=== PATIENT | female | born 1955 | race Caucasian/White ===

== ENCOUNTER 2023-05-05 07:21 | Day surgery (SDC) | payer MEDICARE, OTHER ==
[2023-05-05] VITALS (18 sets, daily range): BP systolic 91–149; BP diastolic 58–135
[~2023-05-05] VITALS: Ht 149.9 cm; Wt 84.6 kg
[~2023-05-05 07:21] MED LIST: AMLO10 PO; CIPR500 PO; COQ1050 MG PO; HYDACE5 PO; HYDCHL25 PO; METO25ER PO; MOVE FREE JOIN1 EACH PO; ONDA4 PO; OXYACE7.5T PO; PHENA200 PO; QUERCETIN500 MG PO; VITAMENS; ZINC15; [UNRECOGNIZED DRUG - OTHER] PO
--- NOTE | 2023-05-05 08:38 | NUR ---
05/05/23 0838 Jennifer Herrera HISTORY, CHART, MEDICATIONS AND ALLERGIES REVIEWED BEFORE START OF PROCEDURE. PATIENT CONFIRMS NPO STATUS AND AGREES WITH SCHEDULED PROCEDURE. 3-LEAD EKG REVIEWED WITH PHYSICIAN PRIOR TO START OF PROCEDURE. MONITOR INTACT WITH CONTINUOUS PULSE OXIMETRY,CAPNOGRAPHY, 3-LEAD EKG, INTERMITTENT BP. SUPPLEMENTAL O2 TO BE TITRATED THROUGHOUT PROCEDURE TO MAINTAIN O2 SATURATION ABOVE 90%. PATIENT DETERMINED TO BE ASA APPROPRIATE FOR PROPOFOL SEDATION PRIOR TO START OF PROCEDURE BY DR. SERRANO. HURRICAINE SPRAY TO OROPHARYX.
--- NOTE | 2023-05-05 09:23 | NUR ---
REPORT RECIEVED. VSS ON ROOM AIR. PT SITTING UP IN BED, DR SERRANO AT BEDSIDE
--- NOTE | 2023-05-05 09:48 | NUR ---
Patient up to Ambulate independently. Gait steady. Discharge instructions reviewed with patient. Patient verbalizes understanding. Copy given to patient to take home. Discharged via wheelchair to private car for ride home.
== END 2023-05-05 09:56 | disposition home or self-care (01) ==
LOC: ORSCMMR 07:21 → ORD 08:30 → ORSCMMR 09:56
PROVIDERS: Internal Medicine Gastroenterology
PROC: 0DJD8ZZ Inspection of Lower Intestinal Tract, Via Natural or Artificial Opening Endoscopic (ICD-10-PCS; principal; 2023-05-05 08:30)
PROC: 0DB48ZX Excision of Esophagogastric Junction, Via Natural or Artificial Opening Endoscopic, Diagnostic (ICD-10-PCS; principal; 2023-05-05 08:30)
PROC: 0DB58ZX Excision of Esophagus, Via Natural or Artificial Opening Endoscopic, Diagnostic (ICD-10-PCS; principal; 2023-05-05 08:30)
DX: R13.14 Dysphagia, pharyngoesophageal phase (principal); K22.10 Ulcer of esophagus without bleeding; K21.00 Gastro-esophageal reflux disease with esophagitis, without bleeding; K44.9 Diaphragmatic hernia without obstruction or gangrene; Z12.11 Encounter for screening for malignant neoplasm of colon; K57.30 Diverticulosis of large intestine without perforation or abscess without bleeding; I10 Essential (primary) hypertension; Z79.899 Other long term (current) drug therapy
CPT/HCPCS: 43239; G0121; 88305; 88312; A9270; J2704; J7120

== ENCOUNTER 2023-10-26 08:20 | Day surgery (SDC) | payer MEDICARE, OTHER ==
[2023-10-26] VITALS (14 sets, daily range): BP systolic 123–181; BP diastolic 60–84
[~2023-10-26] VITALS: Ht 147.3 cm; Wt 88.6 kg
[~2023-10-26 08:20] MED LIST changes: +LISI20 PO; +OMEP20ER PO; +ZINC15 PO
--- NOTE | 2023-10-26 18:36 | NUR ---
SHIFT SUMMARY S/P L TKA, AQUACEL/AHSAN CDI, TEDS/ELEVATED AT REST/POLAR ASHA ON. A&OX4, VSS/RA, EDE PO, VOIDING, AMB 1 PP MOD ASSIST WITH FWW/GB, UP TO CHAIR FOR DINNER, PAIN MANAGED, IV RFA SL/ABX PER EMAR. WILL REPORT TO ONCOMING NOC SHARIFA.
[2023-10-27 04:54] VITALS: BP 102/82
[2023-10-27 05:02] LABS: BASOPHILS ABSOLUTE AUTO 0.03 K/mm3 (0.00-0.23); BASOPHILS PERCENT AUTO 0 % (0-2); EOSINOPHILS PERCENT AUTO 0 % (0-6); Hematocrit 39.5 % (33.0-51.0); Hemoglobin 13.4 g/dL (11.5-16.0); IMMATURE GRAN ABSOLUTE AUTO 0.07 K/mm3 (0.00-0.10); IMMATURE GRAN PERCENT AUTO 0 % (0-1); LYMPHOCYTES ABSOLUTE AUTO 1.25 K/mm3 (0.84-5.20); LYMPHOCYTES PERCENT AUTO 7 % (21-46); MONOCYTES ABSOLUTE AUTO 0.83 K/mm3 (0.16-1.47); MONOCYTES PERCENT AUTO 5 % (4-13); Mean Corpuscular HGB 28.9 pg (26.0-34.0); Mean Corpuscular HGB Conc 33.9 g/dL (31.5-36.5); Mean Corpuscular Volume 85 fL (80-100); Mean Platelet Volume 8.9 fL (9.1-12.4); NEUTROPHILS ABSOLUTE AUTO 15.87 K/mm3 (1.96-9.15); NEUTROPHILS PERCENT AUTO 88 % (41-73); Platelet Count 324 K/mm3 (150-400); RDW Coefficient Variation 12.9 % (11.7-14.2); RDW Standard Deviation 39.9 fL (35.1-46.3); Red Blood Cell Count 4.64 M/mm3 (3.80-5.20); White Blood Cell Count 18.05 K/mm3 (4.00-11.30)
[2023-10-27 05:34] LABS: Bun/Creatinine Ratio 23.2 (12.0-20.0); Calcium, Blood 9.2 mg/dL (8.5-10.1); Creatinine, Blood 0.78 mg/dL (0.40-1.00); Potassium, Blood 4.6 mmol/L (3.5-5.5)
[2023-10-27 07:28] VITALS: BP 126/69
--- NOTE | 2023-10-27 07:33 | NUR ---
SHIFT SUMMARY NOC. PT A/O X4. PT'S LEFT KNEE AQUACEL IS C/D/I. PT IS AMBULATING TO THE BR, VOIDING AND TOLERATING PO INTAKE. PT MEDICATED FOR PAIN WITH RELIEF OF SYMPTOMS. PT RESTED WITH EYES CLOSED AND CALL LIGHT IN REACH.
[2023-10-27] MEDS ORDERED: Percocet 5-3251 EACH PO (08:51)
[2023-10-27] MEDS ORDERED: ASPI81CH PO (08:51)
--- NOTE | 2023-10-27 11:03 | NUR ---
DISCHARGE NOTE: PATIENT AND PATIENTS DAUGHTER WERE EDUCATED ON DISCHARGE INSTRUCTIONS. BOTH VERBALIZED UNDERSTANDING OF INSTRUCTIONS AND HAD NO FURTHER QUESTIONS AT THIS TIME. DAUGHTER ALREADY HAD HARD PERSCRIPTIONS FILLED. IV WAS TAKEN OUT AND WNL. PAIN IS MANAGED WITH PO PAIN MEDS. HER LEFT KNEE HAS AN AQUACEL AND AHSAN WRAP THAT IS C/D/I. DENIES NUMBNESS OR TINGLING. SHE IS A SBA WITH FWW AND GAIT BELT. PATIENT IS DRESSED AND HAS ALL PERSONAL ITEMS IN THE ROOM GATHERED. SHE IS TOLERATING PO INTAKE AND IS VOIDING. PATIENT IS BEING WHEELCHAIRED OUT TO HER DAUGHTERS CAR TO BE TAKEN HOME.
== END 2023-10-27 11:03 | disposition home or self-care (01) ==
LOC: ORSCMMR 08:20 → ORD 09:15 → ORSCMMR 10:00 → ORD 10:00 → ORSCMMR 12:30 → ORD 12:30 → SURS 13:41 → ORSCMMR 10-27 11:03
PROVIDERS: Orthopaedic Surgery
PROC: 0SRD0JA Replacement of Left Knee Joint with Synthetic Substitute, Uncemented, Open Approach (ICD-10-PCS; principal; 2023-10-26 10:00)
DX: M17.12 Unilateral primary osteoarthritis, left knee (principal); I10 Essential (primary) hypertension; K21.9 Gastro-esophageal reflux disease without esophagitis; Z79.899 Other long term (current) drug therapy
CPT/HCPCS: 36415; 73560-LT; 80048; 85025; 97110; 97116; 97162; A9270; C1776; J0171; J0690; J0735; J1170; J1885; J2795; J7050; J7120